=== PATIENT | female | born 1950 | race Caucasian/White ===

== ENCOUNTER → 2022-08-20 14:30 | Outpatient (CLI) | payer MEDICARE, OTHER, SELFPAY ==
--- NOTE | 2022-08-20 14:36 | DI.RAD.S_ITS ---
PROCEDURE: XR HAND RT MIN 3V INDICATIONS: Pain in joints of unspecified hand TECHNIQUE: 3 views of the hand(s) acquired. COMPARISON: None. FINDINGS: Bones: No fractures or dislocations. Carpal bones are normally aligned. No suspicious bony lesions. Mild degenerative arthritis of the 1st carpometacarpal joint, 1st MCP joint, and 1st IP joint. Soft tissues: No suspicious soft tissue calcifications. IMPRESSION: Mild degenerative change involving the thumb. No evidence of acute bony abnormality of the hand. Dictated by: Yahir Garcia M.D. on 08/20/2022 at 17:02 Approved by: Yahir Garcia M.D. on 08/20/2022 at 17:03
--- NOTE | 2022-08-20 14:36 | DI.RAD.S_ITS ---
PROCEDURE: XR HAND LT MIN 3V INDICATIONS: Pain in joints of unspecified hand TECHNIQUE: 3 views of the hand(s) acquired. COMPARISON: [facility], CR, XR HAND RT MIN 3V, 08/20/2022, 16:00. FINDINGS: Bones: No fractures or dislocations. Carpal bones are normally aligned. No suspicious bony lesions. Moderate to severe degenerative arthritis of the 1st carpometacarpal joint. Mild 1st MCP joint and 1st IP joint degenerative change. Soft tissues: No suspicious soft tissue calcifications. 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 Degenerative arthritis of the 1st MCP joint and 1st IP joint. Dictated by: Yahir Garcia M.D. on 08/20/2022 at 17:03 Approved by: Yahir Garcia M.D. on 08/20/2022 at 17:04
== END ==
PROVIDERS: PCP Family Medicine; Referring Provider Family Medicine; Visit Provider Family Medicine
DX: M19.042 Primary osteoarthritis, left hand (principal); M25.541 Pain in joints of right hand; M25.542 Pain in joints of left hand
CPT/HCPCS: 73130

== ENCOUNTER → 2023-09-02 12:20 | Outpatient (CLI) | payer MEDICARE, OTHER, SELFPAY ==
--- NOTE | 2023-09-02 12:22 | DI.RAD.S_ITS ---
PROCEDURE: XR SHOULDER LT MIN 2V INDICATIONS: SHOULDER PAIN TECHNIQUE: 3 views of the shoulder were acquired. COMPARISON: None. FINDINGS: Bones: No fractures or dislocations. Mild degenerative changes of the glenohumeral acromioclavicular joints. Sclerotic focus in the glenoid, may represent a bone island. No suspicious bony lesions. Visualized ribs appear intact. Soft tissues: No suspicious soft tissue calcifications. IMPRESSION: No acute bony abnormality. Mild degenerative changes of the shoulder. Dictated by: Henry Powers M.D. on 09/02/2023 at 14:48 Approved by: Henry Powers M.D. on 09/02/2023 at 14:48
== END ==
LOC: RAD 12:21
PROVIDERS: PCP Family Medicine; Referring Provider Family Medicine; Visit Provider Family Medicine
DX: M25.512 Pain in left shoulder (principal)
CPT/HCPCS: 73030

== ENCOUNTER → 2023-10-03 13:39 | Outpatient (CLI) | payer MEDICARE, OTHER, SELFPAY ==
--- NOTE | 2023-10-03 | DI.MRI.S_ITS ---
PROCEDURE: MR SHOULDER LT WO CON INDICATIONS: pain in shoulder left TECHNIQUE: Noncontrast oblique coronal T2 fast spin echo with fat saturation, oblique sagittal T1 spin echo and T2 fast spin echo with fat saturation, axial T1 spin echo and T2 fast spin echo with fat saturation through the shoulder. COMPARISON: [facility], CR, XR SHOULDER 2+ VIEWS LEFT, 09/27/2023, 14:02. FINDINGS: Image quality: Excellent. Rotator cuff: There is high-grade partial articular sided tearing of the supraspinatus tendon at the distal insertion superimposed on chronic moderate tendinosis. Moderate infraspinatus tendinosis. Teres minor tendon is intact. There is moderate subscapularis tendinosis. No significant rotator cuff muscle atrophy. Bones and bursae: No acute trabecular bone injury or fracture. Small chronic traction cystic changes are seen in the posterior superior humeral head and greater tuberosity near the rotator cuff tendon insertions. There is mild degenerative spurring in the glenoid rim and partial-thickness cartilage irregularity. [id number] degenerative changes are seen at the acromioclavicular joint. Moderate amount of fluid is seen in the subacromial/subdeltoid bursa. No significant glenohumeral effusion. Capsule and soft tissues: Mild diffuse labral degeneration without a displaced tear. Proximal biceps long head tendon demonstrates [id number] tendinosis. There is partial effacement of the fat in the rotator interval. Glenohumeral ligaments are intact. IMPRESSION: 1. 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 2. [id number] proximal biceps long head tendinosis. 3. 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 4. Mild to moderate acromioclavicular joint osteoarthrosis. 5. Moderate subacromial/subdeltoid bursal effusion or bursitis. Approved by: Andrey Camara M.D. on 10/04/2023 at 10:25
== END ==
LOC: MRI 13:40
PROVIDERS: PCP Family Medicine; Referring Provider Orthopaedic Surgery; Visit Provider Orthopaedic Surgery
DX: M75.112 Incomplete rotator cuff tear or rupture of left shoulder, not specified as traumatic (principal); M19.012 Primary osteoarthritis, left shoulder; M25.512 Pain in left shoulder
CPT/HCPCS: 73221